=== PATIENT | female | born 1990 | race American Indian/Alaskan Native ===

== ENCOUNTER 2017-03-03 12:40 | Emergency (ER) | payer OTHER ==
[2017-03-03 12:40] VITALS: BMI 45.4
[2017-03-03 12:51] VITALS: BP 110/69; PULSE 99; RESP 16; TEMP 99.6; O2SAT 97
--- NOTE | 2017-03-03 13:49 | ED PDOC ---
Arrival/HPI - General Chief Complaint: ENT Problem Time Seen by Provider: 03/03/17 12:53 Historian: Patient - History of Present Illness Narrative History of Present Illness (Text): 03/03/17 13:42 A 26 year old morbidly obese female, whose past medical history includes asthma presents to the emergency department for throat and right ear pain, which began 3 days ago with a subjective fever. The patient reports a cough, shortness of breath, nausea, sore throat, body aches, neck pain, and back pain. She notes that she breathes better through her nose due to the pain she feels in her throat. The patient denies any chest pain vomiting, abdominal pain, diarrhea, vision changes, or any other complaints at this time. LMP: February 12, 2017 Time/Duration: < week (3 Days) Symptom Onset: Gradual Symptom Course: Unchanged, Worsening Severity Level: Mild Activities at Onset: Rest, Light Past Medical History - Provider Review Nursing Documentation Reviewed: Yes - Infectious Disease Hx of Infectious Diseases: None - Tetanus Immunization Tetanus Immunization: Unknown - Pulmonary Hx Asthma: Yes - Psychiatric Hx Depression: No Hx Emotional Abuse: No Hx Physical Abuse: No Hx Substance Use: No - Surgical History Hx Section: Yes (x3) Hx Cholecystectomy: Yes - Anesthesia Hx Anesthesia: Yes Hx Anesthesia Reactions: No Hx Malignant Hyperthermia: No - Suicidal Assessment Feels Threatened In Home Enviroment: No Family/Social History - Physician Review Nursing Documentation Reviewed: Yes Family/Social History: No Known Family HX, Unknown Family HX Smoking Status: Never Smoked Hx Alcohol Use: Yes Hx Substance Use: No Hx Substance Use Treatment: No Allergies/Home Meds Allergies/Adverse Reactions: Allergies amoxicillin Allergy (Verified 03/03/17 12:45) RASH FISH Allergy (Verified 03/03/17 12:45) RASH Review of Systems - Physician Review All systems were reviewed & negative as marked: Yes - Review of Systems Constitutional: Fevers (Subjective ) Eyes: absent: Vision Changes ENT: Sore Throat, Other (Right ear pain) Respiratory: SOB (mild), Cough Cardiovascular: absent: Chest Pain Gastrointestinal: Nausea. absent: Abdominal Pain, Diarrhea, Vomiting Genitourinary Female: Normal Musculoskeletal: Back Pain, Neck Pain Neurological: absent: Headache, Dizziness Endocrine: Normal Physical Exam Vital Signs Reviewed: Yes Vital Signs Temp Pulse Resp BP Pulse Ox 03/03/17 12:51 99.6 F 99 H 16 110/69 97 Temperature: Afebrile Blood Pressure: Normal Pulse: Regular Respiratory Rate: Normal Appearance: Positive for: Well-Appearing, Non-Toxic, Comfortable, Other ( morbidly obese black female, nad) Pain Distress: None Mental Status: Positive for: Alert and Oriented X 3 - Systems Exam Head: Present: Atraumatic, Normocephalic Pupils: Present: PERRL Ears: Present: Normal. No: Erythema Mouth: Present: Moist Mucous Membranes Pharnyx: Present: Normal. No: ERYTHEMA, EXUDATE, TONSILS ENLARGED, Peritonsilar Swelling, Uvular Deviation, Muffled/Hoarse Voice, Strider, Soft Palate/Uvular Edema, Other Neck: Present: Normal Range of Motion Respiratory/Chest: Present: Clear to Auscultation, Good Air Exchange. No: Respiratory Distress, Accessory Muscle Use Cardiovascular: Present: Regular Rate and Rhythm, Normal S1, S2. No: Murmurs Abdomen: Present: Normal Bowel Sounds. No: Tenderness, Distention, Peritoneal Signs Back: Present: Normal Inspection Upper Extremity: Present: Normal Inspection. No: Cyanosis, Edema Lower Extremity: Present: Normal Inspection. No: Edema Neurological: Present: GCS=15, Speech Normal Skin: Present: Warm, Dry, Normal Color. No: Rashes Psychiatric: Present: Alert, Oriented x 3, Normal Insight, Normal Concentration Medical Decision Making ED Course and Treatment: 03/03/17 13:42 Impression: A 26 year old female with sore throat and right ear pain. Differential Diagnosis included but are not limited to: Otitis Media vs URI vs Pharyngitis vs. Bronchitis Plan: -- Chest X-Rays -- Throat Culture -- Ibuprofen, predniSONE -- Reassess and disposition Prior Visits: Notes and results from previous visits were reviewed. Patient was last seen in emergency department for sore throat on 09/26/14 and was sent home same day. Progress Notes: Chest X-Ray 03/03/17 14:04 Chest X-Ray is NAD as read by me. 03/03/17 14:08 Patient with noted history. CXR appears negative. Rapid strep is negative. Exam is unremarkable. Given history of asthma and symptoms, will have the patient use steroids and albuterol as well start abx for the developing bronchitis. - Lab Interpretations Lab Results: Lab Results 03/03/17 12:55: Grp A Beta Strep Ag Negative - RAD Interpretation Radiology Orders: 03/03/17 12:54 CHEST TWO VIEWS (PA/LAT) [RAD] Stat - Medication Orders Current Medication Orders: Discontinued Medications Ibuprofen (Motrin Tab) 600 mg PO STAT STA Stop: 03/03/17 13:50 Last Admin: 03/03/17 13:58 Dose: 600 mg Prednisone (Prednisone Tab) 40 mg PO STAT STA Stop: 03/03/17 13:50 Last Admin: 03/03/17 13:58 Dose: 40 mg - PA / LITIGATION SERVICES MANAGER / Resident Statement MD/DO has reviewed & agrees with the documentation as recorded. - Scribe Statement The provider has reviewed the documentation as recorded by the Scribe Kalli Day Provider Scribe Attestation: All medical record entries made by the Scribe were at my direction and personally dictated by me. I have reviewed the chart and agree that the record accurately reflects my personal performance of the history, physical exam, medical decision making, and the department course for this patient. I have also personally directed, reviewed, and agree with the discharge instructions and disposition. Disposition/Present on Arrival - Present on Arrival Any Indicators Present on Arrival: No History of DVT/PE: No History of Uncontrolled Diabetes: No Urinary Catheter: No History of Decub. Ulcer: No History Surgical Site Infection Following: None - Disposition Have Diagnosis and Disposition been Completed?: Yes Diagnosis: Sore throat, Bronchitis Disposition: HOME/ ROUTINE Disposition Time: 13:50 Patient Plan: Discharge Patient Problems: Current Active Problems Problem Status Onset Bronchitis Acute Sore throat Acute Condition: GOOD Discharge Instructions (ExitCare): Acute Bronchitis (ED) Additional Instructions: Take the medications as prescribed. Recommend also taking over the counter Robitussin Cough Syrup. Drink plenty of fluids. Follow up with your primary care doctor. Return to the emergency department if any new concerning symptoms. Prescriptions: Albuterol HFA [Ventolin HFA 90 mcg/actuation (8 g)] 2 puff IH Q4H #1 inhaler Azithromycin [Zithromax] 2 tab PO DAILY #6 tab Ibuprofen [Motrin Tab] 1 tab PO Q8H PRN #20 tab PRN Reason: Pain, Moderate (4-7) predniSONE [Prednisone] 2 tab PO DAILY #8 tab Referrals: Maverick Lamb MD [Primary Care Provider] - Follow up with primary Forms: [employer] ([place])
--- NOTE | 2017-03-03 14:51 | RAD ---
HISTORY: cough COMPARISON: 09/26/2014 TECHNIQUE: Chest PA and lateral FINDINGS: LUNGS: No active pulmonary disease. PLEURA: No significant pleural effusion identified. No pneumothorax apparent. CARDIOVASCULAR: Normal. OSSEOUS STRUCTURES: No significant abnormalities. VISUALIZED UPPER ABDOMEN: Normal. OTHER FINDINGS: None. IMPRESSION: No active disease.
== END 2017-03-03 14:06 | disposition home or self-care (01) ==
LOC: ED 12:40
DX: J40 Bronchitis, not specified as acute or chronic (principal); J02.9 Acute pharyngitis, unspecified